=== PATIENT | male | born 1965 | race Caucasian/White ===

== ENCOUNTER 2017-04-16 08:14 | Emergency (ER) | payer BC ==
[2017-04-16] MEDS ORDERED: Benzocaine 20% Topical Spray UD MUCMEM ONE (08:24)
[2017-04-16] MEDS ORDERED: Lidocaine 2% Viscous Solution 15 ML Cup PO ONE (08:24)
--- NOTE | 2017-04-16 08:29 | EDM.PDOC ---
ED HPI GENERAL MEDICAL PROBLEM - General Chief Complaint: ENT Problem Stated Complaint: TOOTH ACKE Time Seen by Provider: 04/16/17 08:18 - History of Present Illness INITIAL COMMENTS - FREE TEXT/NARRATIVE: HISTORY AND PHYSICAL: History of present illness: The patient is a 51-year-old male who used to do to tobacco was quite and presents with complaints of pain to teeth at the left lower front area that has been ongoing for some time but worsened over the last 1 week. According to the patient is traveling for work and is planning on going home to [place] to see his dentist there. He says that the teeth were loose due to receding gumline and then he ate a carrot and the teeth became loosened and are now discomforting. He points to the area of teeth 24 and 23 as the area of discomfort and swelling tooth 23 is slanted, he has no facial swelling but says that the pain shoots up his jawline. He has had no trauma to the area. He said no fever chills or other systemic complaints Review of systems: As per history of present illness and below otherwise all systems reviewed and negative. Past medical history: As per history of present illness and as reviewed below otherwise noncontributory. Surgical history: As per history of present illness and as reviewed below otherwise noncontributory. Social history: No reported history of drug or alcohol abuse. Family history: As per history of present illness and as reviewed below otherwise noncontributory. Physical exam: Gen.: Well-developed well-nourished male who is nontoxic and speaking clearly and easily in the ED. There is no visual facial swelling that I appreciate HEENT: Atraumatic, normocephalic, pupils reactive, negative for conjunctival pallor or scleral icterus, mucous membranes moist, throat clear, neck supple, nontender, trachea midline. There is no cervical adenopathy or nuchal rigidity. There is receding gumline seen on the lower front teeth throughout with gingival changes and at teeth 23 and 24 there is excessive recession of the gum line and tooth #23 is subluxed and angled and there is gum swelling in this area of a 3 and 4. The gum is not fluctuant Lungs: Clear to auscultation, breath sounds equal bilaterally, chest nontender. Heart: S1S2, regular rate and rhythm no overt murmurs Abdomen: Soft, nondistended, nontender. NABS. Skin: No evidence of any overt rashes or lesions noted diaphoresis and he has normal turgor Genitourinary: Deferred. Rectal: Deferred. Extremities: Atraumatic, negative for cords or calf pain. Neurovascular unremarkable. Neuro: Awake, alert, oriented. Cranial nerves II through XII unremarkable. Cerebellum unremarkable. Motor and sensory unremarkable throughout. Exam nonfocal. Diagnostics: [] Therapeutics: Dental balls Impression: Tooth pain/infection with subluxation Definitive disposition and diagnosis as appropriate pending reevaluation and review of above. - Related Data Allergies Allergy/AdvReac Type Severity Reaction Status Date / Time codeine Allergy Itching Verified 07/11/16 12:49 Home Meds: Home Meds . [No Known Home Meds] 07/11/16 [History] Past Medical History - Past Health History Medical/Surgical History: Denies Medical/Surgical History Social & Family History - Family History Family Medical History: Noncontributory - Tobacco Use Smoking Status *Q: Current Every Day Smoker Years of Tobacco use: 30 Packs/Tins Daily: 0.5 - Caffeine Use Caffeine Use: Reports: None - Recreational Drug Use Recreational Drug Use: No ED ROS GENERAL - Review of Systems Review Of Systems: ROS reveals no pertinent complaints other than HPI. ED EXAM, GENERAL - Physical Exam Exam: See Below (See dictation) Course - Orders/Labs/Meds Orders: Active Orders 24 hr Category Date Time Status Benzocaine [Hurricaine One 20%] Med 04/16/17 08:24 Once 2 each MUCMEM ONETIME ONE Lidocaine 2% [Xylocaine 2% Viscous] Med 04/16/17 08:24 Once 15 ml PO ONETIME ONE Medication Orders Benzocaine (Hurricaine One 20%) 2 each MUCMEM ONETIME ONE Stop: 04/16/17 08:25 Lidocaine HCl (Xylocaine 2% Viscous) 15 ml PO ONETIME ONE Stop: 04/16/17 08:25 Meds: Medications Generic Name Dose Route Start Last Admin Trade Name Freq PRN Reason Stop Dose Admin Benzocaine 2 each 04/16/17 08:24 Hurricaine One 20% MUCMEM 04/16/17 08:25 ONETIME ONE Lidocaine HCl 15 ml 04/16/17 08:24 Xylocaine 2% Viscous PO 04/16/17 08:25 ONETIME ONE Departure - Departure Time of Disposition: 08:28 Disposition: Home, Self-Care 01 Condition: Good Clinical Impression: Dental infection, Pain, dental - Discharge Information Referrals: PCP,None [Primary Care Provider] - Additional Instructions: The following information is given to patients seen in the emergency department who are being discharged to home. This information is to outline your options for follow-up care. We provide all patients seen in our emergency department with a follow-up referral. The need for follow-up, as well as the timing and circumstances, are variable depending upon the specifics of your emergency department visit. If you don't have a primary care physician on staff, we will provide you with a referral. We always advise you to contact your personal physician following an emergency department visit to inform them of the circumstance of the visit and for follow-up with them and/or the need for any referrals to a consulting specialist. The emergency department will also refer you to a specialist when appropriate. This referral assures that you have the opportunity for followup care with a specialist. All of these measure are taken in an effort to provide you with optimal care, which includes your followup. Under all circumstances we always encourage you to contact your private physician who remains a resource for coordinating your care. When calling for followup care, please make the office aware that this follow-up is from your recent emergency room visit. If for any reason you are refused follow-up, please contact the [facility] emergency department at and ask to speak to the emergency department charge nurse. [facility] Primary care- [place] [address] Please connect with one of our local dentist or your dentist at home for definitive care and treatment as we discussed. Please take antibiotics until they're finished and use dental balls as shown and as needed. He may take the tramadol at nighttime when you're home for pain as well as [id number] Tylenol/ibuprofen. Apply ice to face for any swelling and try to avoid chewing or biting involving her front teeth until the tooth is fixed. Return to ER as needed and as discussed - My Orders Last 24 Hours: My Active Orders 04/16/17 08:24 Benzocaine [Hurricaine One 20%] 2 each MUCMEM ONETIME ONE Lidocaine 2% [Xylocaine 2% Viscous] 15 ml PO ONETIME ONE - Assessment/Plan Last 24 Hours: My Active Orders 04/16/17 08:24 Benzocaine [Hurricaine One 20%] 2 each MUCMEM ONETIME ONE Lidocaine 2% [Xylocaine 2% Viscous] 15 ml PO ONETIME ONE
[2017-04-16 08:56] VITALS: BP 118/79
== END 2017-04-16 08:45 | disposition home or self-care (01) ==
LOC: MW.ED 08:14
DX: S03.2XXA Dislocation of tooth, initial encounter (principal); K04.7 Periapical abscess without sinus; F17.210 Nicotine dependence, cigarettes, uncomplicated; X58.XXXA Exposure to other specified factors, initial encounter
CPT/HCPCS: 99282; A9270